=== PATIENT | male | born 1970 | race Caucasian/White ===

== ENCOUNTER 2022-03-24 13:32 | Emergency (ER) | payer SELFPAY ==
[2022-03-24 13:42] VITALS: BP 159/88; PULSE 80; RESP 18; TEMP 37.1; O2SAT 100; BMI 22.4
--- NOTE | 2022-03-24 15:15 | ED_ITS ---
HPI - Neck Pain/Injury <BARBARA Hawkins - Last Filed: 03/24/22 18:32> General Chief Complaint: Neck Pain/Injury Stated Complaint: Pain in lower neck Time Seen by Provider: 03/24/22 14:11 Mode of arrival: Ambulatory History of Present Illness HPI Narrative: This is a 51-year-old male who presents to the emergency department complaining of neck pain which has been worse over the last few days. He endorses riding his bicycle for many years, states that due to this position that he rides in he likely has neck pain from this. He requests to have neck x-rays but denies any recent trauma, he later wishes to not have x-rays due to the cost. He declines wanting any pain medication, patient denies any trauma, he denies any weakness, any radiculopathy symptoms or sensation changes in his hands. Patient states that it has been a few months where his neck pain has gotten worse and he does not know why. He denies any dizziness, lightheadedness, tenderness along his spine or on his neck. He endorses that the musculature to the left of his neck is been painful for approximately one week and he has pain when he moves his head but otherwise does not have any recent changes. He has been afebrile, does not have any systemic symptoms of illness, denies any abdominal pain, flank pain, urinary issues or other. Related Data Allergies Allergy/AdvReac Type Severity Reaction Status Date / Time ibuprofen AdvReac Verified 03/24/22 13:47 Review of Systems <BARBARA Hawkins - Last Filed: 03/24/22 18:32> Review of Systems Narrative: General: denies fever, chills Head/Neck: denies headache, endorses muscular neck pain Eyes: denies visual changes, eye pain Cardio: denies chest pain, palpitations Respiratory: denies shortness of breath, cough GI: denies abdominal pain, nausea, vomiting, or diarrhea : denies dysuria, hematuria or flank pain MSK: denies new joint pain, muscle weakness or swelling Skin: denies rash, itching or wound Neuro: denies numbness, tingling, dizziness Patient History <BARBARA Hawkins - Last Filed: 03/24/22 18:32> Social History Smoking Status: Current every day smoker Smoking Status: Current every day smoker alcohol intake frequency: holidays/special occasions only Substance Use Type: does not use Exam <BARBARA Hawkins - Last Filed: 03/24/22 18:32> Narrative Exam Narrative: Independently reviewed vitals signs and nursing notes. General: Awake, alert, nontoxic, no cardiorespiratory distress Head/Neck: Atraumatic, neck supple Eyes: EOMI, conjunctiva normal Nose: nares patent, no rhinorrhea Mouth/Throat: moist mucus membranes, posterior pharynx without erythema or lesion Cardio: Regular rate and rhythm, no peripheral edema Respiratory: respirations unlabored without wheezing, stridor, or rales. No retractions, hypoxia or tachypnea GI: Abdomen soft, nontender to palpation x4 quadrants, no guarding or rebound tenderness MSK: Moves all extremities, neurovascularly intact, range of motion without deficit, able to move chin to chest, no tenderness along cervical spine, patient likely has a left-sided trapezius strain as he has tenderness of his left trapezius to palpation. Skin: Normal capillary refill, no rash Neuro: Normal speech and cognition, normal gait Initial Vital Signs Initial Vital Signs: Vital Signs Temperature 98.8 F 03/24/22 13:42 Pulse Rate 80 03/24/22 13:42 Respiratory Rate 18 03/24/22 13:42 Blood Pressure 159/88 H 03/24/22 13:42 Pulse Oximetry 100 03/24/22 13:42 Oxygen Delivery Method 03/24/22 13:42 <Kassi Thomas DO - Last Filed: 03/25/22 07:37> Initial Vital Signs Initial Vital Signs: Vital Signs Temperature 98.8 F 03/24/22 13:42 Pulse Rate 80 03/24/22 13:42 Respiratory Rate 18 03/24/22 13:42 Blood Pressure 159/88 H 03/24/22 13:42 Pulse Oximetry 100 03/24/22 13:42 Oxygen Delivery Method 03/24/22 13:42 Course <BARBARA Hawkins - Last Filed: 03/24/22 18:32> Orders Ordered: Discontinued Medications Acetaminophen (Acetaminophen 325 Mg Tablet) 650 mg PO NOW ONE Stop: 03/24/22 14:30 Last Admin: 03/24/22 14:39 Dose: Not Given Documented By: [facility] Vital Signs Vital signs: Vital Signs - 8 hr 03/24/22 13:42 Temperature 98.8 F Pulse Rate 80 Respiratory Rate 18 Blood Pressure 159/88 H Pulse Oximetry 100 Oxygen Delivery Method Room Air <Kassi Thomas DO - Last Filed: 03/25/22 07:37> Orders Ordered: Discontinued Medications Acetaminophen (Acetaminophen 325 Mg Tablet) 650 mg PO NOW ONE Stop: 03/24/22 14:30 Last Admin: 03/24/22 14:39 Dose: Not Given Documented By: [facility] Vital Signs Vital signs: Vital Signs - 8 hr 03/24/22 13:42 Temperature 98.8 F Pulse Rate 80 Respiratory Rate 18 Blood Pressure 159/88 H Pulse Oximetry 100 Oxygen Delivery Method Room Air MDM - Neck Pain/Injury <BARBARA Hawkins - Last Filed: 03/24/22 18:32> MDM Narrative Medical decision making narrative: This is a pleasant 51-year-old male who presents to the emergency department with a considerable amount of anxiety regarding his neck pain which he states started one week ago but he endorses that he has had this pain past. He initially came here for x-rays and wants to go to his chiropractor but then decided that he could not afford x-rays here in the emergency department and he wishes to decline them and follow up with his chiropractor. He did not want any pain medicine, discussed Tylenol, ibuprofen, topical modalities such as Voltaren gel or lidocaine patches. Patient states that he rides his bicycle over where for transportation and since his left neck has been hurting for a few days it has been more painful to ride his bicycle. Patient states it feels better thro ughout the day and is worse in the morning. He denies any headache, sensation changes, weakness in his lower extremities, fever, or any other symptom. Patient wishes to go to his chiropractor and was offered Tylenol today. He is ambulatory with a steady gait, without any weakness, without any incontinence or other concerning symptoms. Patient is appropriate and amenable to discharge home. Vital signs are stable on repeat examination is unremarkable. Patient has been informed of results. Patient has been given strict return to ER precautions for any new or worsening symptoms. Patient understands to follow up closely with outpatient providers as instructed. Patient understands plan and agrees to discharge home. All questions and concerns answered at this time. Discharge Plan Departure Patient Disposition: Home Clinical Impression: Strain of neck muscle Qualifiers: Encounter type: initial encounter Qualified Code(s): S16.1XXA - Strain of muscle, fascia and tendon at neck level, initial encounter Instructions: Neck Sprain, DI for Neck Pain Activity Restrictions/Additional Instructions: *You have been diagnosed with a neck strain, this could be a trapezius muscle strain or some of the musculature in your neck. Please try light massage, ice, heat and see which one feels better, do not do any physical exertion but enjoy light activity like cycling for short period of time or shorter walks until this resolves. Please take Tylenol if it is significantly painful, you can try diclofenac gel/or Voltaren gel, this is the same thing and available [id number]. This might help your inflammation calm down. Please go to your chiropractor as needed, a muscle strain or sprain can take 1-3 weeks until fully resolved. Please take it easy and see if it goes away. You can try 600 mg of ibuprofen with food and water to see if this helps your pain but if you do not like how it makes you feel, then do not try. There are topical things like lidocaine patches, CBD cream, anti-inflammatory gel like Voltaren, these are all available [id number]. *What to do: *Please continue to take your regular medications as directed. [ ] New medication prescriptions sent to your pharmacy: [ ] [ ] New medication written as a paper prescription [ x] No new medications given *Please follow up with your primary care provider in 2-3 days, call for an appointment. Let them know you were seen in the Emergency Department and that we asked that you be seen for follow-up. We will electronically transmit a record of today's note if your PCP is in our system *If you do not have a primary care provider please contact [phone] to establish care with one of [facility] primary care providers. *Return to Emergency Department if you should have any new, worsening or concerning symptoms, such as [fever greater than 101F, chills, worsening pain, persistent vomiting or other bothersome symptoms] Visit Report Forms: Patient Portal/API <Kassi Thomas DO - Last Filed: 03/25/22 07:37> Cosign ED Attending Cosignature Attestation: I was immediately available in the department for consultation. Documentation has been reviewed. I agree with assessment and plan.
== END 2022-03-24 14:40 | disposition home or self-care (01) ==
PROVIDERS: Emergency Provider Nurse Practitioner Critical Care Medicine
DX: S16.1XXA Strain of muscle, fascia and tendon at neck level, initial encounter (principal)
CPT/HCPCS: 99281